=== PATIENT | male | born 1960 | race Caucasian/White ===

== ENCOUNTER 2019-12-17 10:36 | Emergency (ER) | payer OTHER ==
[~2019-12-17] VITALS: Ht 167.6 cm; Wt 83.9 kg
--- NOTE | ~2019-12-17 | EMS ---
[facility] [address] [facility] [place] [address] EMS Patient Care Report Name: MADISYN GONZALEZ JR [id number] Admission: 12/17/19 Attend Phys: Discharge: 12/17/19 Date of : 56 Report #: [id number] THIS REPORT FOR: //name// Report Transmitted: 12/17/2019 12:35 EMS Care Summary [facility] [place] Incident [id number] @ 12/17/2019 09:50 Incident Location [address] [place] [address] Patient Madisyn Gonzalez Male, 59 Years 1960 Patient Address [id number] [place] [id number] Patient History Hypertension (HTN),,Edema, Patient Allergies No known allergies, Chief Complaint Multiple traumatic injuries Disposition Transported No Lights/[place] Dispatch Reason Animal Bite Transported To [facility] Narrative [facility] dispatched to the address listed for a dog bite, animals secured. 310 arrived on scene with out incident after IFD. Patient was found sitting on a chair in front of the address being attended to by IFD. Upon our arrival, IFD and the patient walked to the back of the ambulance and he climbed in. Patient was wearing tight running pants and shorts, complaining of multiple dog bites. Patient reports a bite to his right buttock, right thigh, left thigh and left [address] [place] [address] EMS Patient Care Report Name: MADISYN GONZALEZ Room: [facility]#: [id number] Admission: 12/17/19 Attend Phys: Discharge: 12/17/19 Date of : 56 Report #: [id number] arm. His pant legs were cut to expose the wounds, and the wound to his buttock was exposed and recovered with his clothing. IFD had bandaged the wound to the left forearm with 4x4 gauze and coband, I removed the bandaging to view the wounds and take pictures with the patients consent to provide to the animal researcher. There were no other injuries found on head to toe exam. Patient vital signs were monitored, and after a short delay to obtain animal information and to allow the animal researcher to talk to the patient we initiated transport to [facility]. On reassessment, no additional wounds or injuries were located, the patient denies any fall or LOC. Patient rates the pain 5/10 describing it as a stinging pain. I offered pain control, the patient declined. Patient was monitored en route. Report given by radio to the hospital, upon arrival patient was wheeled into the ER and into Room 10. Patient was permitted to stand and pivot to the hospital bed. Patient care and report were given to the ER Staff. Patient did not have any belongings other than his clothing. Initial Vitals @10:03Pain: 07/14, @10:30Pain: 07/14, @10:09SpO2: 99, @10:12SpO2: 99, @10:17SpO2: 99, @10:27SpO2: 97, @10:09P: 112,R: 16,BP: 165/98,Revised Trauma: 8, @PTAP: 100,BP: 180/P, @10:09GCS: 15, @PTAGCS: 15, @10:03 Assessments @10:03MENTAL:SKIN:HEENT:LUNG SOUNDS:ABDOMEN:PELVIS//GI:EXTREMITIES:PULSE:NEURO: Impression Injury Procedures @PTAApplication of gauze support bandage (procedure)Response: UnchangedSucceeded@PTAApplication of pressure bandage (procedure)Response: UnchangedSucceeded Timeline REHABILITATION CENTER MANAGER,Application of gauze support bandage (procedure),Response: UnchangedSucceeded, REHABILITATION CENTER MANAGER,Application of pressure bandage (procedure),Response: UnchangedSucceeded, REHABILITATION CENTER MANAGER,BP: 180/P M,PULSE: 100,RR: R,SPO2: Ox,ETCO2: ,BG: ,PAIN: ,GCS: , [place] [address] EMS Patient Care Report Name: MADISYN GONZALEZ JR [facility] [id number] Admission: 12/17/19 Attend Phys: Discharge: 12/17/19 Date of : 56 Report #: [id number] REHABILITATION CENTER MANAGER,BP: / M,PULSE: ,RR: R,SPO2: Ox,ETCO2: ,BG: ,PAIN: ,GCS: 15, 09:49,Call Received 09:49,Dispatch Notified 09:49,Psap Call 09:50,Dispatched 09:54,En Route 10:02,On Scene 10:03,At Patient 10:03,BP: / M,PULSE: ,RR: R,SPO2: Ox,ETCO2: ,BG: ,PAIN: 5,GCS: , 10:03,BP: / M,PULSE: ,RR: R,SPO2: Ox,ETCO2: ,BG: ,PAIN: ,GCS: , 10:09,BP: / M,PULSE: ,RR: R,SPO2: 99 Ox,ETCO2: ,BG: ,PAIN: ,GCS: , 10:09,BP: 165/98 M,PULSE: 112,RR: 16 R,SPO2: Ox,ETCO2: ,BG: ,PAIN: ,GCS: , 10:09,BP: / M,PULSE: ,RR: R,SPO2: Ox,ETCO2: ,BG: ,PAIN: ,GCS: 15, 10:12,BP: / M,PULSE: ,RR: R,SPO2: 99 Ox,ETCO2: ,BG: ,PAIN: ,GCS: , 10:17,BP: / M,PULSE: ,RR: R,SPO2: 99 Ox,ETCO2: ,BG: ,PAIN: ,GCS: , 10:17,Depart Scene 10:27,BP: / M,PULSE: ,RR: R,SPO2: 97 Ox,ETCO2: ,BG: ,PAIN: ,GCS: , 10:30,BP: / M,PULSE: ,RR: R,SPO2: Ox,ETCO2: ,BG: ,PAIN: 5,GCS: , 10:31,At Destination 10:46,Call Closed Disclaimer v1.1 Copyright 2020 [employer] This EMS Care Summary contains data elements from the applicable legal record (which may be displayed differently). It is designed to provide pertinent information for the following purposes: continuity of care, clinical quality, and state data reporting. The complete legal record is available to ED staff and administrators of the receiving hospital in [employer] Patient Tracker. All data is provided "as is."
[2019-12-17] MEDS ORDERED: BLOOD PRESSURE (10:50)
[2019-12-17] MEDS ORDERED: CHOLESTEROL (10:50)
[2019-12-17] MEDS ORDERED: AUGMENTIN 500-1 EACH PO (10:57)
[2019-12-17] MEDS ORDERED: HYDROCODON-ACE1 EAC7 PO (11:29)
[2019-12-17] MEDS ORDERED: IBUPROFEN 800800 MG PO (11:29)
[2019-12-17 11:37] VITALS: BP 144/98
== END 2019-12-17 11:49 | disposition home or self-care (01) ==
LOC: M.ERS 10:36
DX: S51.831A Puncture wound without foreign body of right forearm, initial encounter (principal); S30.810A Abrasion of lower back and pelvis, initial encounter; S70.311A Abrasion, right thigh, initial encounter; S70.312A Abrasion, left thigh, initial encounter; I10 Essential (primary) hypertension; E78.5 Hyperlipidemia, unspecified; W54.0XXA Bitten by dog, initial encounter; Y93.89 Activity, other specified; Y92.89 Other specified places as the place of occurrence of the external cause; Y99.9 Unspecified external cause status